=== PATIENT | male | born 2000 | race Hispanic/Latino ===

== ENCOUNTER 2021-07-30 04:26 | Emergency (ER) | payer BC ==
[2021-07-30 04:46] VITALS: BP 138/73
--- NOTE | 2021-07-30 05:02 | Emergency Department Report ---
ED General Adult HPI - General Chief complaint: Medical Clearance Stated complaint: MH PUI?: No Time Seen by Provider: 07/30/21 04:47 Source: patient, EMS (Verbal report received from emergency medical services. EMS documentation not available at time of chart dictation ), RN notes reviewed Mode of arrival: Ambulatory Limitations: No Limitations - History of Present Illness Initial comments: The patient was evaluated in the emergency department for symptoms described in the history of present illness. He/she was evaluated in the context of the global COVID-19 pandemic, which necessitated consideration that the patient might be at risk for infection with the virus that causes COVID-19. Institutional protocols and algorithms that pertain to the evaluation of patients at risk for COVID-19 are in a state of rapid change based on information released by regulatory bodies including the CDC and federal and state organizations. These policies and algorithms were followed during the patient's care in the emergency department. Please note that these policies, procedures and recommendations changed on a rapid basis. The patient is a 20-year-old gentleman. This patient is not known to myself previously. He is currently visiting from [place]. He is currently at a detox facility. For unclear reasons, the patient was referred to the emergency room. The patient himself denies physical pain to me. He denies hallucinations, homicidality, suicidality, overdose, intentional overdose, access to guns or firearms As per collateral information obtained from EMS, they report that the patient was pacing at his detox facility, and for unclear reasons, was placed on a 1013 hold or involuntary hold. The patient denies Covid symptomatology. The patient denies physical pain. The patient denies all medical and physical complaints at this time. -: This morning Improves with: none Worsens with: none Associated Symptoms: denies other symptoms ED Review of Systems ROS: Stated complaint: MH Other details as noted in HPI Comment: All other systems reviewed and negative ED Past Medical Hx - Past Medical History Previous Medical History?: Yes Hx Psychiatric Treatment: Yes Additional medical history: schizophrenia - Surgical History Past Surgical History?: No - Social History Smoking Status: Current Every Day Smoker ED Physical Exam - General Limitations: No Limitations General appearance: alert, anxious - Head Head exam: Present: atraumatic, normocephalic - Eye Eye exam: Present: normal appearance, EOMI. Absent: nystagmus - ENT ENT exam: Present: normal exam, normal orophraynx, mucous membranes moist, normal external ear exam - Neck Neck exam: Present: normal inspection, full ROM. Absent: tenderness, meningismus - Respiratory Respiratory exam: Present: normal lung sounds bilaterally. Absent: respiratory distress, wheezes, rales, rhonchi, stridor, decreased breath sounds - Cardiovascular Cardiovascular Exam: Present: regular rate, normal rhythm, normal heart sounds. Absent: bradycardia, tachycardia, irregular rhythm, systolic murmur, diastolic murmur, rubs, gallop - GI/Abdominal GI/Abdominal exam: Present: soft. Absent: distended, tenderness, guarding, rebound, rigid, pulsatile mass - Rectal Rectal exam: Present: deferred - Extremities Exam Extremities exam: Present: normal inspection, full ROM, other (2+ pulses noted in the bilateral upper and lower extremities. There is no palpable cord. negative Homans sign. Muscular compartments are soft. The pelvis is stable.). Absent: pedal edema, calf tenderness - Back Exam Back exam: Present: normal inspection, full ROM. Absent: tenderness, CVA tenderness (R), CVA tenderness (L), paraspinal tenderness, vertebral tenderness - Neurological Exam Neurological exam: Present: alert, oriented X3, other (No facial droop. Tongue midline. Extraocular movements intact bilaterally. Facial sensation intact to light touch in V1, V2, V3 distribution bilaterally. 5 and a 5 strength in 4 extremities. Sensation intact to light touch in 4 extremities.). Absent: motor sensory deficit - Psychiatric Psychiatric exam: Present: anxious. Absent: agitated, manic, homicidal ideation, suicidal ideation - Skin Skin exam: Present: warm, dry, intact, normal color. Absent: rash ED Course Vital Signs 07/30/21 04:41 Temperature 98.7 F Pulse Rate 89 Respiratory 18 Rate Blood Pressure 138/73 O2 Sat by Pulse 97 Oximetry ED Medical Decision Making - Lab Data Vital Signs 07/30/21 04:41 Temperature 98.7 F Pulse Rate 89 Respiratory 18 Rate Blood Pressure 138/73 O2 Sat by Pulse 97 Oximetry - Medical Decision Making Differential diagnosis, including but not limited to: Encounter for behavioral screening examination, encounter for medical screening examination Assessment and plan: 20-year-old gentleman, who was afebrile, with reassuring vital signs, clinically sober, awake, alert, oriented, with a GCS of 15, not homicidal, not suicidal, exhibits decision-making capacity, free from distracting injury, who was referred to the emergency room for behavioral health screening examination. This patient does not meet criteria for 1013 hold involuntary hold, or involuntary confinement. I have discontinued his 1013. He does not endorse any acute medical complaints at this time. The patient does not appear to have an emergent medical or psychiatric condition present at this time. Critical care attestation.: If time is entered above; I have spent that time in minutes in the direct care of this critically ill patient, excluding procedure time. ED Disposition Clinical Impression: Encounter for behavioral health screening, Encounter for medical screening examination Disposition: [facility] Is pt being admited?: No Does the pt Need Aspirin: No Condition: Good Additional Instructions: The patient was not found to have an emergent medical condition present today. The patient does not meet criteria for 1013 hold or involuntary hold today. The patient was not found to have an emergent medical or psychiatric condition while present in the emergency room. The patient should follow-up with an outpatient primary care doctor, therapist, or mental health professional within the next week. Please return to the emergency room right away with new pain, worsened pain, migration of pain, homicidality, suicidality, change in mental status, confusion, or any new, worsened or different symptoms not present on initial emergency room evaluation. Referrals: MARLIN TRAN MD [Staff Physician] - 3-5 Days [facility] [Outside] - 3-5 Days [facility] [Outside] - 3-5 Days
== END 2021-07-30 05:37 ==
LOC: ED 04:26
DX: Z13.30 Encounter for screening examination for mental health and behavioral disorders, unspecified (principal); Z00.00 Encounter for general adult medical examination without abnormal findings; F17.200 Nicotine dependence, unspecified, uncomplicated
CPT/HCPCS: 99283